=== PATIENT | female | born 1980 | race Caucasian/White ===

== ENCOUNTER 2020-11-14 16:32 | Inpatient (IN) | payer OTHER ==
[~2020-11-14] VITALS: Ht 157.5 cm; Wt 95.5 kg
[2020-11-14] MEDS ORDERED: ALBUTEROL INHALER 1 PUFF/90 MCG INHALER IH PRN ×2 (16:55→22:10)
[2020-11-14] MEDS ORDERED: REMDESIVIR INJ 200 MG in normal saline 100ml IV soln 60 ML IV ONE (16:55)
[2020-11-14] MEDS ORDERED: iohexol 350MG/ML 100ml bottle IV ONE (17:08)
--- NOTE | 2020-11-14 17:34 | NUR ---
PT AWAITING ROOM, PT INTAKE DONE ON AMBO DECK AND EMS REMAINS WITH PT WHILE SEEKING ED BED PLACEMENT
[2020-11-14 17:38] LABS: BASOPHILS % (AUTO) 0.1 % (0-1); EOSINOPHILS % (AUTO) 0 % (0-6); HEMATOCRIT 44.2 % (35.0-45.0); HEMOGLOBIN 15.2 g/dl (12.0-16.0); LYMPHOCYTES # (AUTO) 1.1 X10'3 (1.1-4.8); LYMPHOCYTES % (AUTO) 8.3 % (21-51); MEAN CORPUSCULAR HEMOGLOBIN 28.5 PG (27.0-31.0); MEAN CORPUSCULAR HGB CONC 34.4 g/dL (33.0-36.5); MEAN CORPUSCULAR VOLUME 82.8 FL (78-98); MEAN PLATELET VOLUME 7.5 FL (7.4-10.4); MONOCYTES # (AUTO) 0.6 X10'3 (0-0.9); MONOCYTES % (AUTO) 4.6 % (2-12); NEUTROPHILS # (AUTO) 11.7 X10'3 (1.8-7.7); PLATELET COUNT 490 X10'3 (140-440); RED BLOOD COUNT 5.34 X10'6 (4.20-5.60); RED CELL DISTRIBUTION WIDTH 14.4 % (11.5-14.5); WHITE BLOOD COUNT 13.5 X10'3 (4.5-11.0)
[2020-11-14 17:39] LABS: D-DIMER 2.14 MG/L FEU (0-0.50)
[2020-11-14 17:46] LABS: ALANINE AMINOTRANSFERASE 65 U/L (12-78); ALBUMIN 2.9 G/DL (3.4-5.0); ALBUMIN/GLOBULIN RATIO 0.7 (1.1-1.5); ALKALINE PHOSPHATASE 97 IU/L (46-116); ANION GAP 12 (8-16); ASPARTATE AMINO TRANSFERASE 30 U/L (10-37); BILIRUBIN,TOTAL 0.6 MG/DL (0.1-1.0); BLOOD UREA NITROGEN 18 MG/DL (7-18); BUN/CREATININE RATIO 22.5 (6.6-38.0); CALCIUM 8.2 MG/DL (8.5-10.1); CHLORIDE 102 MMOL/L (99-107); GLUCOSE 179 MG/DL (70-104); POTASSIUM 3.9 MMOL/L (3.5-5.1); SODIUM 138 MMOL/L (135-145); TOTAL CARBON DIOXIDE 24.3 MMOL/L (24-32); TOTAL PROTEIN 6.9 G/DL (6.4-8.2); eGFR 80 ML/MIN
[2020-11-14 17:57] LABS: C-REACTIVE PROTEIN 0.55 MG/DL (0.0-0.5)
[2020-11-14] MEDS ORDERED: azithromycin/NS 500mg/250ml 250 ML IV ONE (18:20)
[2020-11-14] MEDS ORDERED: CefTRIAXone 2gm/D5W 50ml BAG 50 ML IV ONE (18:20)
[2020-11-14 18:22] LABS: ABG BASE EXCESS 0.1 mmol/L (-2.0-2.0); ABG HCO3 22.4 mmol/L (22.0-26.0); ABG OXYGEN SATURATION 92.4 % (94-97); ABG PCO2 (T) 30.6 mmHg (32.0-45.0); ABG PO2 (T) 60.8 mmHg (75.0-100.0); ALLEN'S TEST POSITIVE; FCOHb 0.1 % (0.0-3.9); FLOW 11 L/min; FMetHb 0.2 % (0.0-1.5); FO2Hb 92.1 % (94-97); TOTAL HEMOGLOBIN 15.9 G/dl (12.0-16.0)
[2020-11-14] MEDS ORDERED: DEXAMETHASONE 6 MG TABLET PO STA (19:31)
[2020-11-14] MEDS ORDERED: temazepam 15mg capsule PO PRN (21:00)
[2020-11-14] MEDS ORDERED: AMPH20CA3 PO (21:29)
--- NOTE | 2020-11-14 21:40 | NUR ---
PT TOLERATES PO WELL; PROVIDED FOOD/ICE WATER; GCS REMAINS 15; PT TAUGHT ON IS AND DEEP BREATHING EXERCISES.
[2020-11-14] MEDS ORDERED: magnesium 2GM in 50ml NS 50 ML IV PRN (22:10)
[2020-11-14] MEDS ORDERED: bisacodyl 10mg suppository rectal RC PRN (22:10)
[2020-11-14] MEDS ORDERED: HYDROcodone/acetaminophen 10/325mg tab PO PRN (22:10)
[2020-11-14] MEDS ORDERED: magnesium Cl slow-release 64mg tablet PO PRN (22:10)
[2020-11-14] MEDS ORDERED: magnesium hydroxide 30ml (MOM) UD suspension PO PRN (22:10)
[2020-11-14] MEDS ORDERED: diphenhydrAMINE 50 mg/ml inj IV PRN (22:10)
[2020-11-14] MEDS ORDERED: metoclopramide 5 mg/ml inj IV PRN (22:10)
[2020-11-14] MEDS ORDERED: diphenhydrAMINE 25mg capsule PO PRN (22:10)
[2020-11-14] MEDS ORDERED: mag hydrox/Alum hydrox/simeth 30ml oral suspension PO PRN (22:10)
[2020-11-14] MEDS ORDERED: HYDROmorphone inj. 0.5 MG/0.5 ML DISP.SYRIN IV PRN (22:10)
[2020-11-14] MEDS ORDERED: acetaminophen 325mg tablet PO PRN ×2 (22:10)
[2020-11-14] MEDS ORDERED: potassium Cl 20 mEq SR tablet PO PRN ×2 (22:10)
[2020-11-14] MEDS ORDERED: potassium Cl 40MEQ/1/2NS 520ml 520 ML IV PRN ×2 (22:10)
[2020-11-14] MEDS ORDERED: HYDROcodone/acetaminophen 5mg/325mg tablet PO PRN (22:10)
[2020-11-14] MEDS ORDERED: ondansetron/PF 4mg/2ml inj IV PRN (22:10)
[2020-11-14] MEDS ORDERED: magnesium 4gm in 100ml NS 100 ML IV PRN (22:10)
[2020-11-14] MEDS: enoxaparin 40mg/0.4ml syringe SUBCUT SCH (22:58)
[2020-11-14] MEDS: normal saline 1000ml 1,000 ML IV SCH (22:59)
[2020-11-14 23:33] LABS: PARTIAL THROMBOPLASTIN TIME 24 SECONDS (22-32)
--- NOTE | 2020-11-15 01:40 | NUR ---
PT WAS CRYING, STATES SHE DOESN'T WANT TO BE HERE; PT UNCOMFORTABLE ON BED; PT SAYS SHE "DIDN'T REALIZE THIS IS WHAT IT WOULD BE LIKE"; DIFFUSED SITUATION BY GETTNIG A HOSPITAL BED AND REMOVING TOILET FROM ROOM; DIMMING LIGHTS; TRYING TO ASSURE PATIENT SHE IS GETTING THE MEDICATION AND TX SHE NEEDS.
--- NOTE | 2020-11-15 02:45 | NUR ---
PT RESTING WELL AND IS OXYGENATING BETTER; DECREASED O2 TO 10LHF; PT TOLERATING 10 WELL; PT IS ALLOWING ME TO DRAW LAB NOW AND IS MORE CALM; PT VSS; MILDLY BRADYCARDIC; NO OTHER CHANGES IN CONDITION.
[2020-11-15 03:03] LABS: BASOPHILS % (AUTO) 0.1 % (0-1); EOSINOPHILS % (AUTO) 0 % (0-6); HEMATOCRIT 40.7 % (35.0-45.0); LYMPHOCYTES # (AUTO) 0.9 X10'3 (1.1-4.8); LYMPHOCYTES % (AUTO) 8.5 % (21-51); MEAN CORPUSCULAR HEMOGLOBIN 28.5 PG (27.0-31.0); MEAN CORPUSCULAR HGB CONC 34.4 g/dL (33.0-36.5); MEAN CORPUSCULAR VOLUME 82.8 FL (78-98); MEAN PLATELET VOLUME 7.4 FL (7.4-10.4); MONOCYTES # (AUTO) 0.7 X10'3 (0-0.9); MONOCYTES % (AUTO) 6.4 % (2-12); NEUTROPHILS # (AUTO) 9.3 X10'3 (1.8-7.7); PLATELET COUNT 448 X10'3 (140-440); RED BLOOD COUNT 4.91 X10'6 (4.20-5.60); WHITE BLOOD COUNT 10.9 X10'3 (4.5-11.0)
[2020-11-15 03:20] LABS: ALANINE AMINOTRANSFERASE 52 U/L (12-78); ALBUMIN 2.4 G/DL (3.4-5.0); ALBUMIN/GLOBULIN RATIO 0.6 (1.1-1.5); ALKALINE PHOSPHATASE 76 IU/L (46-116); ANION GAP 12 (8-16); ASPARTATE AMINO TRANSFERASE 16 U/L (10-37); BILIRUBIN,TOTAL 0.3 MG/DL (0.1-1.0); BLOOD UREA NITROGEN 18 MG/DL (7-18); BUN/CREATININE RATIO 22.8 (6.6-38.0); CALCIUM 7.9 MG/DL (8.5-10.1); CHLORIDE 106 MMOL/L (99-107); CREATININE 0.79 MG/DL (0.40-0.90); GLUCOSE 225 MG/DL (70-104); POTASSIUM 4.2 MMOL/L (3.5-5.1); SODIUM 139 MMOL/L (135-145); TOTAL CARBON DIOXIDE 20.7 MMOL/L (24-32); TOTAL PROTEIN 6.1 G/DL (6.4-8.2); eGFR 81 ML/MIN
[2020-11-15 03:24] LABS: C-REACTIVE PROTEIN 1.07 MG/DL (0.0-0.5); LACTATE DEHYDROGENASE 253 U/L (81-234); MAGNESIUM 2.2 MG/DL (1.5-2.4)
--- NOTE | 2020-11-15 07:30 | NUR ---
NO SZ OR SYNCOPAL EPISODES NOTED.
[2020-11-15] MEDS: K and/or MAG REPLACEMENT MC SCH ×2 (08:00→20:00)
[2020-11-15] MEDS: dextroamphetamine/amphetamine ER 20 MG CAP.SR.24H PO SCH (08:00)
[2020-11-15] MEDS: docusate sod 100mg capsule PO SCH ×2 (08:00→19:28)
[2020-11-15] MEDS ORDERED: REMDESIVIR INJ 100 MG in normal saline 100ml IV soln 80 ML IV SCH (08:00)
[2020-11-15] MEDS: enoxaparin 40mg/0.4ml syringe SUBCUT SCH ×2 (09:43→19:27)
[2020-11-15] MEDS: dexamethasone inj 6 MG in normal saline 50ml IV soln 50 ML IV SCH ×2 (10:30→23:56)
[2020-11-15] MEDS: normal saline 1000ml 1,000 ML IV SCH ×3 (10:52→21:53)
[2020-11-15 18:00] VITALS: BP 115/60
[2020-11-15] MEDS ORDERED: azithromycin/NS 500mg/250ml 250 ML IV SCH (18:00)
[2020-11-15] MEDS: lactobacillus rhamnosus 10,000 MMU CELLS/CAPSULE PO SCH (19:27)
[2020-11-15] MEDS: REMDESIVIR 100 MG in NS 100ml IVPB IV SCH (19:27)
[2020-11-15] MEDS: CefTRIAXone/D5W-Rocephin 1gm 50 ML IV SCH (20:08)
[2020-11-15 22:00] VITALS: BP 111/66
[2020-11-16] VITALS (7 sets, daily range): BP systolic 103–127; BP diastolic 43–64
--- NOTE | 2020-11-16 02:41 | NUR ---
tele called that patient's heart rate 32. pt simóning, asymptomatic at this time. VS just taken and stable. will notify
--- NOTE | 2020-11-16 03:18 | NUR ---
notified Dr. Sutton of [facility]. echo ordered for am.
[2020-11-16 06:40] LABS: URINE AMPHETAMINE SCREEN NEGATIVE (Neg); URINE BARBITUATE SCREEN NEGATIVE (Neg); URINE BENZODIAZEPINES SCREEN NEGATIVE (Neg); URINE CANNABINOID SCREEN NEGATIVE (Neg); URINE COCAINE SCREEN NEGATIVE (Neg); URINE METHADONE SCREEN NEGATIVE (Neg); URINE OPIATE SCREEN NEGATIVE (Neg); URINE PHENCYCLIDINE SCREEN NEGATIVE (Neg)
--- NOTE | 2020-11-16 06:53 | NUR ---
Patient in room ORTHO 4024. I have received report from Chiara MCGEE and had the opportunity to ask questions and assume patient care.
[2020-11-16 07:30] LABS: CLARITY,URINE CLEAR (Clear); COLOR,URINE YELLOW (Yellow); UA COLLECTION TYPE NON-SPECIFIED
[2020-11-16 07:31] LABS: GLUCOSE, URINE NEGATIVE (Neg); KETONES,URINE NEGATIVE (Neg); LEUKOCYTE ESTERASE ,URINE NEGATIVE (Neg); NITRITES, URINE NEGATIVE (Neg); OCCULT BLOOD,URINE NEGATIVE (Neg); PROTEIN,URINE NEGATIVE (Neg); UROBILINOGEN,URINE 0.2 E.U/dL (0.2-1.0)
[2020-11-16] MEDS: dextroamphetamine/amphetamine ER 20 MG CAP.SR.24H PO SCH (08:00)
[2020-11-16] MEDS: docusate sod 100mg capsule PO SCH ×2 (08:00→20:00)
[2020-11-16] MEDS: K and/or MAG REPLACEMENT MC SCH ×2 (08:00→20:00)
[2020-11-16] MEDS: lactobacillus rhamnosus 10,000 MMU CELLS/CAPSULE PO SCH ×2 (08:07→20:23)
[2020-11-16] MEDS: dexamethasone inj 6 MG in normal saline 50ml IV soln 50 ML IV SCH ×2 (08:07→20:23)
[2020-11-16] MEDS: enoxaparin 40mg/0.4ml syringe SUBCUT SCH ×2 (08:08→20:23)
[2020-11-16 08:29] LABS: BASOPHILS % (AUTO) 0.1 % (0-1); EOSINOPHILS % (AUTO) 0 % (0-6); HEMATOCRIT 40.9 % (35.0-45.0); HEMOGLOBIN 13.8 g/dl (12.0-16.0); LYMPHOCYTES # (AUTO) 1.2 X10'3 (1.1-4.8); LYMPHOCYTES % (AUTO) 10.9 % (21-51); MEAN CORPUSCULAR HEMOGLOBIN 28.3 PG (27.0-31.0); MEAN CORPUSCULAR HGB CONC 33.8 g/dL (33.0-36.5); MEAN CORPUSCULAR VOLUME 83.7 FL (78-98); MEAN PLATELET VOLUME 7.9 FL (7.4-10.4); MONOCYTES # (AUTO) 0.6 X10'3 (0-0.9); MONOCYTES % (AUTO) 5.1 % (2-12); NEUTROPHILS # (AUTO) 9.3 X10'3 (1.8-7.7); NEUTROPHILS % (AUTO) 83.9 % (42-75); PLATELET COUNT 451 X10'3 (140-440); RED BLOOD COUNT 4.88 X10'6 (4.20-5.60); RED CELL DISTRIBUTION WIDTH 13.9 % (11.5-14.5); WHITE BLOOD COUNT 11.1 X10'3 (4.5-11.0)
[2020-11-16 08:35] LABS: ALANINE AMINOTRANSFERASE 36 U/L (12-78); ALBUMIN 2.4 G/DL (3.4-5.0); ALBUMIN/GLOBULIN RATIO 0.7 (1.1-1.5); ALKALINE PHOSPHATASE 66 IU/L (46-116); ANION GAP 10 (8-16); ASPARTATE AMINO TRANSFERASE 10 U/L (10-37); BILIRUBIN,TOTAL 0.4 MG/DL (0.1-1.0); BLOOD UREA NITROGEN 15 MG/DL (7-18); BUN/CREATININE RATIO 22.7 (6.6-38.0); C-REACTIVE PROTEIN 0.39 MG/DL (0.0-0.5); CHLORIDE 107 MMOL/L (99-107); CREATININE 0.66 MG/DL (0.40-0.90); GLUCOSE 213 MG/DL (70-104); LACTATE DEHYDROGENASE 240 U/L (81-234); MAGNESIUM 2.4 MG/DL (1.5-2.4); POTASSIUM 4.1 MMOL/L (3.5-5.1); SODIUM 139 MMOL/L (135-145); TOTAL CARBON DIOXIDE 22.4 MMOL/L (24-32); eGFR > 90 ML/MIN
[2020-11-16] MEDS: normal saline 1000ml 1,000 ML IV SCH (10:28)
--- NOTE | 2020-11-16 10:52 | NUR ---
Page sent to re: Room 4024B, Keshia Charles Pt's HR down into mid 30's while asleep on Right side, when awake on back HR up to mid 60's. Aminata [phone] Will continue to monitor.
--- NOTE | 2020-11-16 15:19 | NUR ---
PAGER ID: [phone] MESSAGE: re: [id number], Keshia CharlesRonnie, phone call with [employer]. Pt had sustained HR in low 30's x 20 minutes while asleep, approx. 1330 and now is sustaining in mid to low 40's sleeping. 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 Addendum: 11/16/20 at 1816 by Angela Shelby RN pt easily aroused, BP 110/60, O2 Sat 94% on 15L high flow N/C, no c/o by pt, no s/sx distress.
[2020-11-16] MEDS: CefTRIAXone/D5W-Rocephin 1gm 50 ML IV SCH (17:42)
--- NOTE | 2020-11-16 18:15 | NUR ---
Problems reprioritized. Patient report given, questions answered & plan of care reviewed with Diane MCGEE.
[2020-11-16] MEDS: REMDESIVIR 100 MG in NS 100ml IVPB IV SCH (20:23)
--- NOTE | 2020-11-16 22:09 | NUR ---
tele reported decreased HR to 29 for patient. she was proning, sleeping. no distress. VSS. aware of her low heart rate all day in the 30's. will continue to monitor. noted sats 97%, now on 12L HF.
[2020-11-17 02:00] VITALS: BP 101/50
[2020-11-17 05:30] VITALS: BP 98/40
--- NOTE | 2020-11-17 06:20 | NUR ---
Patient in room ORTHO 4024. I have received report from ARELY Guadarrama and had the opportunity to ask questions and assume patient care.
[2020-11-17 08:28] LABS: BASOPHILS % (AUTO) 0.3 % (0-1); EOSINOPHILS % (AUTO) 0.1 % (0-6); HEMATOCRIT 43.6 % (35.0-45.0); HEMOGLOBIN 14.6 g/dl (12.0-16.0); LYMPHOCYTES # (AUTO) 1.3 X10'3 (1.1-4.8); LYMPHOCYTES % (AUTO) 10.4 % (21-51); MEAN CORPUSCULAR HEMOGLOBIN 28.3 PG (27.0-31.0); MEAN CORPUSCULAR HGB CONC 33.6 g/dL (33.0-36.5); MEAN CORPUSCULAR VOLUME 84.4 FL (78-98); MONOCYTES # (AUTO) 0.7 X10'3 (0-0.9); MONOCYTES % (AUTO) 5.7 % (2-12); NEUTROPHILS # (AUTO) 10.3 X10'3 (1.8-7.7); NEUTROPHILS % (AUTO) 83.5 % (42-75); PLATELET COUNT 535 X10'3 (140-440); RED BLOOD COUNT 5.17 X10'6 (4.20-5.60); RED CELL DISTRIBUTION WIDTH 13.9 % (11.5-14.5); WHITE BLOOD COUNT 12.3 X10'3 (4.5-11.0)
[2020-11-17 08:54] LABS: PLATELET ESTIMATE INCREASED; TOTAL CELLS COUNTED 100
[2020-11-17 09:01] LABS: ALANINE AMINOTRANSFERASE 38 U/L (12-78); ALBUMIN 2.7 G/DL (3.4-5.0); ALBUMIN/GLOBULIN RATIO 0.7 (1.1-1.5); ALKALINE PHOSPHATASE 73 IU/L (46-116); ANION GAP 9 (8-16); ASPARTATE AMINO TRANSFERASE 10 U/L (10-37); BILIRUBIN,TOTAL 0.4 MG/DL (0.1-1.0); BLOOD UREA NITROGEN 14 MG/DL (7-18); BUN/CREATININE RATIO 20.6 (6.6-38.0); CALCIUM 8.3 MG/DL (8.5-10.1); CHLORIDE 105 MMOL/L (99-107); CREATININE 0.68 MG/DL (0.40-0.90); GLUCOSE 179 MG/DL (70-104); LACTATE DEHYDROGENASE 375 U/L (81-234); MAGNESIUM 2.5 MG/DL (1.5-2.4); POTASSIUM 4.3 MMOL/L (3.5-5.1); SODIUM 139 MMOL/L (135-145); TOTAL CARBON DIOXIDE 24.9 MMOL/L (24-32); TOTAL PROTEIN 6.5 G/DL (6.4-8.2); eGFR > 90 ML/MIN
[2020-11-17 09:10] LABS: D-DIMER 1.21 MG/L FEU (0-0.50)
[2020-11-17 10:00] VITALS: BP 106/54
[2020-11-17] MEDS: K and/or MAG REPLACEMENT MC SCH ×2 (11:35→19:14)
[2020-11-17] MEDS: docusate sod 100mg capsule PO SCH ×2 (11:36→19:38)
[2020-11-17] MEDS: lactobacillus rhamnosus 10,000 MMU CELLS/CAPSULE PO SCH ×2 (11:38→19:28)
[2020-11-17] MEDS: dexamethasone inj 6 MG in normal saline 50ml IV soln 50 ML IV SCH ×2 (11:38→19:29)
[2020-11-17] MEDS: enoxaparin 40mg/0.4ml syringe SUBCUT SCH ×2 (11:39→19:28)
[2020-11-17] MEDS: CefTRIAXone/D5W-Rocephin 1gm 50 ML IV SCH (13:08)
[2020-11-17 14:00] VITALS: BP 96/47
--- NOTE | 2020-11-17 18:35 | NUR ---
Problems reprioritized. Patient report given, questions answered & plan of care reviewed with ARELY Hutton.
[2020-11-17] MEDS: REMDESIVIR 100 MG in NS 100ml IVPB IV SCH (20:01)
[2020-11-17 22:00] VITALS: BP_SYST 105; BP_SYST 106; BP_DIAS 54; BP_DIAS 56
[2020-11-18 02:00] VITALS: BP 105/52
--- NOTE | 2020-11-18 06:39 | NUR ---
Problems reprioritized. Patient report given, questions answered & plan of care reviewed with Eamon MCGEE .
[2020-11-18] MEDS: K and/or MAG REPLACEMENT MC SCH ×2 (08:00→19:10)
[2020-11-18] MEDS: docusate sod 100mg capsule PO SCH ×2 (08:00→19:11)
[2020-11-18 08:40] LABS: HEMOGLOBIN 14.3 g/dl (12.0-16.0); LYMPHOCYTES # (AUTO) 1.4 X10'3 (1.1-4.8); MONOCYTES # (AUTO) 0.8 X10'3 (0-0.9)
[2020-11-18 08:45] LABS: BASOPHILS % (AUTO) 0.2 % (0-1); EOSINOPHILS % (AUTO) 0.2 % (0-6); HEMATOCRIT 42.9 % (35.0-45.0); LYMPHOCYTES % (AUTO) 11.6 % (21-51); MEAN CORPUSCULAR HEMOGLOBIN 28.2 PG (27.0-31.0); MEAN CORPUSCULAR HGB CONC 33.4 g/dL (33.0-36.5); MEAN CORPUSCULAR VOLUME 84.5 FL (78-98); MEAN PLATELET VOLUME 8.6 FL (7.4-10.4); MONOCYTES % (AUTO) 6.6 % (2-12); NEUTROPHILS # (AUTO) 9.6 X10'3 (1.8-7.7); NEUTROPHILS % (AUTO) 81.4 % (42-75); PLATELET COUNT 539 X10'3 (140-440); RED BLOOD COUNT 5.07 X10'6 (4.20-5.60); RED CELL DISTRIBUTION WIDTH 13.8 % (11.5-14.5); WHITE BLOOD COUNT 11.7 X10'3 (4.5-11.0)
[2020-11-18 08:53] LABS: ALANINE AMINOTRANSFERASE 33 U/L (12-78); ALBUMIN 2.6 G/DL (3.4-5.0); ALBUMIN/GLOBULIN RATIO 0.7 (1.1-1.5); ALKALINE PHOSPHATASE 67 IU/L (46-116); ANION GAP 1 (8-16); ASPARTATE AMINO TRANSFERASE 10 U/L (10-37); BILIRUBIN,TOTAL 0.5 MG/DL (0.1-1.0); BLOOD UREA NITROGEN 14 MG/DL (7-18); BUN/CREATININE RATIO 20.9 (6.6-38.0); C-REACTIVE PROTEIN 0.08 MG/DL (0.0-0.5); CALCIUM 8.3 MG/DL (8.5-10.1); CHLORIDE 100 MMOL/L (99-107); CREATININE 0.67 MG/DL (0.40-0.90); GLUCOSE 171 MG/DL (70-104); LACTATE DEHYDROGENASE 193 U/L (81-234); MAGNESIUM 2.5 MG/DL (1.5-2.4); POTASSIUM 4.1 MMOL/L (3.5-5.1); SODIUM 126 MMOL/L (135-145); TOTAL CARBON DIOXIDE 25.5 MMOL/L (24-32); TOTAL PROTEIN 6.1 G/DL (6.4-8.2); eGFR > 90 ML/MIN
[2020-11-18 08:59] LABS: D-DIMER 1.08 MG/L FEU (0-0.50)
[2020-11-18] MEDS: dexamethasone inj 6 MG in normal saline 50ml IV soln 50 ML IV SCH (09:54)
[2020-11-18] MEDS: enoxaparin 40mg/0.4ml syringe SUBCUT SCH ×2 (09:57→19:16)
[2020-11-18] MEDS: CefTRIAXone/D5W-Rocephin 1gm 50 ML IV SCH (09:57)
[2020-11-18] MEDS: lactobacillus rhamnosus 10,000 MMU CELLS/CAPSULE PO SCH ×2 (09:57→19:17)
[2020-11-18 10:00] VITALS: BP 96/39
--- NOTE | 2020-11-18 10:20 | NUR ---
Initial: Pt admit DX COVID-19, PNA, and acute respiratory failure per EMR. PO initially 50% regular meals improving to mostly 100% meals past two days. Current PO trends meeting needs. LBM 11/17 refusing routine colace per EMR. Serum Na 126 this AM down from 139 yesterday w/ Glu 171mg/dl and no hx DM on dexamethasone per EMR. No nutrition intervention at this time. Will continue to monitor. Rec: 1. continue regular diet 3. routine bowel care 4. scaled wt this admit; subsequent weekly wts Addendum: 11/18/20 at [address] Amended: Links added.
[2020-11-18 14:00] VITALS: BP 100/49
[2020-11-18 18:00] VITALS: BP 108/57
--- NOTE | 2020-11-18 18:20 | NUR ---
Problems reprioritized. Patient report given, questions answered & plan of care reviewed with ARIANNA MCGEE.
[2020-11-18] MEDS: REMDESIVIR 100 MG in NS 100ml IVPB IV SCH (19:17)
[2020-11-18] MEDS: dexamethasone inj 4 MG in normal saline 50ml IV soln 50 ML IV SCH (19:17)
[2020-11-18 22:00] VITALS: BP 105/54
[2020-11-19 02:00] VITALS: BP 102/50
--- NOTE | 2020-11-19 06:28 | NUR ---
Problems reprioritized. Patient report given, questions answered & plan of care reviewed with Bereket MCGEE .
--- NOTE | 2020-11-19 06:35 | NUR ---
Patient in room ORTHO 4024. I have received report from Anni MCGEE and had the opportunity to ask questions and assume patient care.
[2020-11-19 07:00] VITALS: BP 92/58
[2020-11-19] MEDS: K and/or MAG REPLACEMENT MC SCH (08:00)
[2020-11-19] MEDS: enoxaparin 40mg/0.4ml syringe SUBCUT SCH (08:11)
[2020-11-19] MEDS: lactobacillus rhamnosus 10,000 MMU CELLS/CAPSULE PO SCH (08:12)
[2020-11-19] MEDS: docusate sod 100mg capsule PO SCH ×2 (08:12→08:22)
[2020-11-19] MEDS: dexamethasone inj 4 MG in normal saline 50ml IV soln 50 ML IV SCH (08:15)
[2020-11-19 09:12] LABS: BASOPHILS % (AUTO) 0.1 % (0-1); EOSINOPHILS % (AUTO) 0.2 % (0-6); HEMATOCRIT 44.3 % (35.0-45.0); LYMPHOCYTES # (AUTO) 1.6 X10'3 (1.1-4.8); LYMPHOCYTES % (AUTO) 13.8 % (21-51); MEAN CORPUSCULAR HEMOGLOBIN 28.2 PG (27.0-31.0); MEAN CORPUSCULAR HGB CONC 33.9 g/dL (33.0-36.5); MEAN CORPUSCULAR VOLUME 83.3 FL (78-98); MEAN PLATELET VOLUME 8.6 FL (7.4-10.4); MONOCYTES # (AUTO) 0.8 X10'3 (0-0.9); MONOCYTES % (AUTO) 6.9 % (2-12); NEUTROPHILS # (AUTO) 9.1 X10'3 (1.8-7.7); PLATELET COUNT 536 X10'3 (140-440); RED BLOOD COUNT 5.31 X10'6 (4.20-5.60); RED CELL DISTRIBUTION WIDTH 14.1 % (11.5-14.5); WHITE BLOOD COUNT 11.4 X10'3 (4.5-11.0)
[2020-11-19 09:26] LABS: ALANINE AMINOTRANSFERASE 38 U/L (12-78); ALBUMIN 2.7 G/DL (3.4-5.0); ALBUMIN/GLOBULIN RATIO 0.7 (1.1-1.5); ALKALINE PHOSPHATASE 69 IU/L (46-116); ANION GAP 13 (8-16); ASPARTATE AMINO TRANSFERASE 9 U/L (10-37); BILIRUBIN,TOTAL 0.5 MG/DL (0.1-1.0); BLOOD UREA NITROGEN 15 MG/DL (7-18); BUN/CREATININE RATIO 24.6 (6.6-38.0); C-REACTIVE PROTEIN 0.09 MG/DL (0.0-0.5); CALCIUM 8.4 MG/DL (8.5-10.1); CHLORIDE 103 MMOL/L (99-107); CREATININE 0.61 MG/DL (0.40-0.90); GLUCOSE 169 MG/DL (70-104); LACTATE DEHYDROGENASE 249 U/L (81-234); MAGNESIUM 2.5 MG/DL (1.5-2.4); TOTAL CARBON DIOXIDE 22.4 MMOL/L (24-32); TOTAL PROTEIN 6.4 G/DL (6.4-8.2); eGFR > 90 ML/MIN
[2020-11-19 09:32] LABS: D-DIMER 0.88 MG/L FEU (0-0.50)
[2020-11-19 09:33] LABS: POTASSIUM 4.6 MMOL/L (3.5-5.1)
[2020-11-19 09:35] LABS: SODIUM 138 MMOL/L (135-145)
[2020-11-19] MEDS: CefTRIAXone/D5W-Rocephin 1gm 50 ML IV SCH (10:11)
[2020-11-19] MEDS ORDERED: ASPI-611 PO (11:05)
[2020-11-19] MEDS ORDERED: LACT1CAP26 PO (11:05)
[2020-11-19] MEDS ORDERED: BENZ-16 PO (11:05)
[2020-11-19] MEDS ORDERED: PRED10TA23 PO (11:05)
[2020-11-19] MEDS ORDERED: CEFD300C3 PO (11:05)
[2020-11-19] MEDS ORDERED: ALBU8.5H17 INH (11:05)
--- NOTE | 2020-11-19 13:13 | NUR ---
Discharge instructions given to patient, patient verbalized understanding of all instructions made. Peripheral IV catheter removed, tip intact. Patient was 94% on room air when checked. Patient has portable oxygen at bedside but admitted she did not know how to use it and was not instructed how to use it. Patient was educated about home oxygen safety such as not to smoke or not let anyone smoke while the oxygen is in use. I advised her to contact the hospital facility where she originally come from to request to speak to the counter caser to find out the name of the DME company who delivered the oxygen and the contact information as she has questions about it. Patient's new prescriptions were e-sent to the pharmacy on file. Patient was instructed to use her prescribed inhaler in case she gets short of breath or wheezing. Patient's home medications stored in the hospital pharmacy was returned to patient. Addendum: 11/19/20 at 1327 by Steve Rene RN Patient was also advised to go to ER if her condition worsen
--- NOTE | 2020-11-19 15:30 | NUR ---
Patient discharged home, picked up by her . All belongings were sent with the patient.
== END 2020-11-19 15:30 | disposition home or self-care (01) | DRG 177 ==
LOC: ER 16:33 → ED HOLD 22:12 → ORTHO 4S 11-15 08:25
PROVIDERS: ADMIT Family Medicine; ATTEND Family Medicine
PROC: XW033E5 Introduction of Remdesivir Anti-infective into Peripheral Vein, Percutaneous Approach, New Technology Group 5 (ICD-10-PCS; principal; 2020-11-14)
PROC: B32T1ZZ Computerized Tomography (CT Scan) of Left Pulmonary Artery using Low Osmolar Contrast (ICD-10-PCS; 2020-11-14)
PROC: B3201ZZ Computerized Tomography (CT Scan) of Thoracic Aorta using Low Osmolar Contrast (ICD-10-PCS; 2020-11-14)
PROC: B32S1ZZ Computerized Tomography (CT Scan) of Right Pulmonary Artery using Low Osmolar Contrast (ICD-10-PCS; 2020-11-14)
PROC: 5A0935A Assistance with Respiratory Ventilation, Less than 24 Consecutive Hours, High Flow/Velocity Cannula (ICD-10-PCS; 2020-11-16)
PROC: 5A0935A Assistance with Respiratory Ventilation, Less than 24 Consecutive Hours, High Flow/Velocity Cannula (ICD-10-PCS; 2020-11-17)
PROC: 5A0935A Assistance with Respiratory Ventilation, Less than 24 Consecutive Hours, High Flow/Velocity Cannula (ICD-10-PCS; 2020-11-18)
DX: U07.1 COVID-19 (principal); J12.82 Pneumonia due to coronavirus disease 2019; J96.01 Acute respiratory failure with hypoxia; F32.9 Major depressive disorder, single episode, unspecified; F90.9 Attention-deficit hyperactivity disorder, unspecified type; Z98.891 History of uterine scar from previous surgery
CPT/HCPCS: 36415; 36600; 71275; 80053; 80305; 81003; 82803; 83605; 83615; 83735; 83880; 84145; 84484; 85007; 85018; 85025; 85379; 85610; 85730; 86140; 87040; 87081; 93306; 94760; 96365; 96366; 96367; 96368; 99285; G0378; J0456; J0696; J1100; J1650; J7030; J8540; Q9967